=== PATIENT | male | born 1990 | race Caucasian/White ===

== ENCOUNTER 2017-04-30 17:39 | Emergency (ER) | payer SELFPAY ==
[2017-04-30] MEDS ORDERED: Pantoprazole 40 MG Vial IVPUSH ONE (17:55)
[2017-04-30] MEDS ORDERED: Ondansetron 4 MG/2 ML SDV IVPUSH ONE (17:57)
--- NOTE | 2017-04-30 17:57 | EDM.PDOC ---
ED HPI GENERAL MEDICAL PROBLEM - General Chief Complaint: Abdominal Pain Stated Complaint: PT VOMITING BLOOD Time Seen by Provider: 04/30/17 17:49 - History of Present Illness INITIAL COMMENTS - FREE TEXT/NARRATIVE: HISTORY AND PHYSICAL: History of present illness: Patient 27-year-old male presents with a concern of vomiting blood he states he had several episodes he states he drinks regularly he denies alcohol withdrawal denies history of melena or hematochezia denies abdominal pain. Review of systems: As per history of present illness and below otherwise all systems reviewed and negative. Past medical history: As per history of present illness and as reviewed below otherwise noncontributory. Surgical history: As per history of present illness and as reviewed below otherwise noncontributory. Social history: No reported history of drug or alcohol abuse. Family history: As per history of present illness and as reviewed below otherwise noncontributory. Physical exam: HEENT: Atraumatic, normocephalic, pupils reactive, negative for conjunctival pallor or scleral icterus, mucous membranes moist, throat clear, neck supple, nontender, trachea midline. Lungs: Clear to auscultation, breath sounds equal bilaterally, chest nontender. Heart: S1S2, regular, negative for clicks, rubs, or JVD. Abdomen: Soft, nondistended, nontender. Negative for masses or hepatosplenomegaly. Negative for costovertebral tenderness. Pelvis: Stable nontender. Genitourinary: Deferred. Rectal: Deferred. Extremities: Atraumatic, negative for cords or calf pain. Neurovascular unremarkable. Neuro: Awake, alert, oriented. Cranial nerves II through XII unremarkable. Cerebellum unremarkable. Motor and sensory unremarkable throughout. Exam nonfocal. Diagnostics: CBC CMP PT/INR chest x-ray Therapeutics: Protonix 80 mg IV Zofran 4 mg IV Impression: #1gastritis #2 alcohol abuse Definitive disposition and diagnosis as appropriate pending reevaluation and review of above. - Related Data Allergies Allergy/AdvReac Type Severity Reaction Status Date / Time No Known Allergies Allergy Verified 04/30/17 17:55 Home Meds: Home Meds . [No Known Home Meds] 04/30/17 [History] ED ROS GENERAL - Review of Systems Review Of Systems: ROS reveals no pertinent complaints other than HPI. ED EXAM, GENERAL - Physical Exam Exam: See Below (See dictation) Course - Vital Signs Last Recorded V/S: Last Vital Signs Temp 36.2 C 04/30/17 17:57 Pulse 120 H 04/30/17 17:57 Resp 18 04/30/17 17:57 BP 107/81 04/30/17 17:57 Pulse Ox 97 04/30/17 17:57 - Orders/Labs/Meds Orders: Active Orders 24 hr Category Date Time Status Chest 1V Frontal [CR] Stat Exams 04/30/17 17:45 Taken Labs: Laboratory Tests 04/30/17 04/30/17 04/30/17 Range/Units 17:52 17:52 17:52 WBC 7.43 (4.0-11.0) K/uL RBC 5.63 (4.50-5.90) M/uL Hgb 16.2 (13.0-17.0) g/dL Hct 46.9 (38.0-50.0) % MCV 83.3 (80.0-98.0) fL MCH 28.8 (27.0-32.0) pg MCHC 34.5 (31.0-37.0) g/dL RDW Std Deviation 40.4 (28.0-62.0) fl RDW Coeff of Cate 14 (11.0-15.0) % Plt Count 289 (150-400) K/uL MPV 10.20 (7.40-12.00) fL Neut % (Auto) 50.6 (48.0-80.0) % Lymph % (Auto) 44.0 H (16.0-40.0) % [place] % (Auto) 5.2 (0.0-15.0) % Eos % (Auto) 0.1 (0.0-7.0) % Baso % (Auto) 0.1 (0.0-1.5) % Neut # (Auto) 3.8 (1.4-5.7) K/uL Lymph # (Auto) 3.3 H (0.6-2.4) K/uL [place] # (Auto) 0.4 (0.0-0.8) K/uL Eos # (Auto) 0.0 (0.0-0.7) K/uL Baso # (Auto) 0.0 (0.0-0.1) K/uL Nucleated RBC % 0.0 /100WBC Nucleated RBCs # 0 K/uL INR 0.93 Sodium 146 (136-146) mmol/L Potassium 4.0 (3.5-5.1) mmol/L Chloride 111 H (98-110) mmol/L Carbon Dioxide 23 (21-31) mmol/L BUN 7 (6.0-23.0) mg/dL Creatinine 0.9 (0.6-1.5) mg/dL Est Cr Clr Drug Dosing 98.35 mL/min Estimated GFR (MDRD) > 60.0 ml/min Glucose 122 H (60-110) mg/dL Calcium 9.7 (8.8-10.8) mg/dL Total Bilirubin 0.3 (0.1-1.5) mg/dL AST 45 H (5-40) IU/L ALT 33 (8-54) IU/L Alkaline Phosphatase 89 (40-150) Total Protein 8.2 H (6.0-8.0) g/dL Albumin 4.7 (3.5-5.0) g/dL Globulin 3.5 (2.0-3.5) g/dL Albumin/Globulin Ratio 1.3 (1.3-2.8) Meds: Medications Discontinued Medications Generic Name Dose Route Start Last Admin Trade Name Freq PRN Reason Stop Dose Admin Ondansetron HCl 4 mg 04/30/17 17:57 Zofran IVPUSH 04/30/17 17:58 ONETIME ONE Pantoprazole Sodium 80 mg 04/30/17 17:55 Protonix Iv IVPUSH 04/30/17 17:56 .BOLUS ONE Departure - Departure Time of Disposition: 18:44 Disposition: Home, Self-Care 01 Condition: Good Clinical Impression: Gastritis, Alcohol abuse - Discharge Information Referrals: PCP,None [Primary Care Provider] - Forms: ED Department Discharge Additional Instructions: The following information is given to patients seen in the emergency department who are being discharged to home. This information is to outline your options for follow-up care. We provide all patients seen in our emergency department with a follow-up referral. The need for follow-up, as well as the timing and circumstances, are variable depending upon the specifics of your emergency department visit. If you don't have a primary care physician on staff, we will provide you with a referral. We always advise you to contact your personal physician following an emergency department visit to inform them of the circumstance of the visit and for follow-up with them and/or the need for any referrals to a consulting specialist. The emergency department will also refer you to a specialist when appropriate. This referral assures that you have the opportunity for followup care with a specialist. All of these measure are taken in an effort to provide you with optimal care, which includes your followup. Under all circumstances we always encourage you to contact your private physician who remains a resource for coordinating your care. When calling for followup care, please make the office aware that this follow-up is from your recent emergency room visit. If for any reason you are refused follow-up, please contact the [facility] emergency department at and asked to speak to the emergency department charge nurse. [facility] [address] [place] [id number] [facility] - General Surgery Professional Building [address] [place] [address], [address] [place] [address] Protonix as prescribed follow-up clinic in general surgery as discussed call to schedule appointment return as needed as discussed stop drinking - My Orders Last 24 Hours: My Active Orders 04/30/17 17:45 Chest 1V Frontal [CR] Stat - Assessment/Plan Last 24 Hours: My Active Orders 04/30/17 17:45 Chest 1V Frontal [CR] Stat
[2017-04-30 18:24] LABS: CHLORIDE,CL 111 mmol/L (98-110); SODIUM,NA 146 mmol/L (136-146)
--- NOTE | 2017-05-01 14:57 | CR ---
EXAM DATE: 04/30/17 PATIENT'S AGE: 27 Patient: ALIA MINER Facility: [place], [place] Site . Site : 1990 Study: XRay Chest [id number] 6:18:31 PM Ordering Physician: Doctor Feldman Final Report: INDICATION: vomiting blood TECHNIQUE: Chest 1 view COMPARISON: None FINDINGS: Cardiovascular and mediastinum: Heart size and vasculature are normal in caliber and appearance. Mediastinum is within normal limits. Lungs and pleural space: No focal consolidation. No sign of pleural effusion. No pneumothorax. Bones and soft tissues: No significant findings. IMPRESSION: No acute cardiopulmonary disease. Dictated by Bonilla Baker MD @ 04/30/2017 6:30:04 PM Dictated by: Bonilla Baker MD @ 04/30/2017 18:30:13 (Electronic Signature) Report Signed by Proxy. [email or web address]
== END 2017-04-30 19:06 | disposition home or self-care (01) ==
LOC: MW.ED 17:39
DX: K29.70 Gastritis, unspecified, without bleeding (principal); F10.10 Alcohol abuse, uncomplicated
CPT/HCPCS: 36415; 71045; 71045-26; 80053; 85025; 85610; 99283